=== PATIENT | female | born 1950 | race Caucasian/White ===

== ENCOUNTER 2020-07-07 16:30 | Emergency (ER) | payer MEDICARE ==
[~2020-07-07] VITALS: Ht 165.1 cm; Wt 75.0 kg
[~2020-07-07 16:30] MED LIST: ONDA4TAB12 PO
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
[2020-07-07] MEDS ORDERED: HYDROcodone/acetaminophen 5mg/325mg tablet PO ONE ×2 (17:00→20:25)
--- NOTE | 2020-07-07 17:08 | NUR ---
TO CT AT THIS TIME VIA [facility], NO SIGNS OF DISTRESS NOTED.
[2020-07-07] MEDS ORDERED: HYDR-3965 PO (19:56)
[2020-07-07 20:13] VITALS: BP 133/78
== END 2020-07-07 20:17 | disposition home or self-care (01) ==
LOC: ER 16:30
DX: S22.31XA Fracture of one rib, right side, initial encounter for closed fracture (principal); S22.21XA Fracture of manubrium, initial encounter for closed fracture; S30.1XXA Contusion of abdominal wall, initial encounter; S80.01XA Contusion of right knee, initial encounter; S80.02XA Contusion of left knee, initial encounter; G89.29 Other chronic pain; M81.0 Age-related osteoporosis without current pathological fracture; Z79.899 Other long term (current) drug therapy; V49.9XXA Car occupant (driver) (passenger) injured in unspecified traffic accident, initial encounter; Y93.89 Activity, other specified; Y92.89 Other specified places as the place of occurrence of the external cause; Y99.8 Other external cause status
CPT/HCPCS: 71250; 73560; 93005; 99285